=== PATIENT | female | born 1960 | race Caucasian/White ===

== ENCOUNTER 2023-09-01 22:47 | Emergency (ER) | payer OTHER, SELFPAY ==
[2023-09-01 22:53] VITALS: BP 135/94; PULSE 55; RESP 18; TEMP 36.1; O2SAT 99; BMI 24.9
[2023-09-01 23:22] VITALS: O2SAT 100
[2023-09-01 23:23] VITALS: BP 136/71; PULSE 55; O2SAT 100
[2023-09-01 23:30] VITALS: BP 131/73; PULSE 54; O2SAT 100
--- NOTE | 2023-09-01 23:50 | ED_ITS ---
HPI - Nausea/Vomiting/Diarrhea General Chief complaint: Nausea/Vomiting/Diarrhea Stated complaint: N/V/D Time Seen by Provider: 09/01/23 22:53 Source: patient and family Mode of arrival: Ambulatory History of Present Illness HPI Narrative: 63-year-old female presents for nausea and vomiting that happened after eating dinner tonight. Patient and her ate at a local [employer] restaurant and she had crab brisk. Shortly after coming home she felt abdominal cramping and had multiple episodes of nausea with vomiting. She states currently she feels dehydrated with a low-grade headache. Related Data Previous Rx's Medication Instructions Recorded ondansetron 4 mg disintegrating 4 mg PO Q8H PRN nausea and 09/02/23 tablet vomiting #20 tabs Allergies Allergy/AdvReac Type Severity Reaction Status Date / Time No Known Drug Allergies Allergy Verified 09/01/23 23:51 Review of Systems Review of Systems Narrative: Negative except as noted above Patient History Social History Smoking Status: Never smoker Smoking Status: Never smoker alcohol intake frequency: 3 or more drinks per day Alcohol type: wine Substance Use Type: does not use Exam Initial Vital Signs Initial Vital Signs: Vital Signs Temperature 97 F L 09/01/23 22:53 Pulse Rate 55 L 09/01/23 22:53 Respiratory Rate 18 09/01/23 22:53 Blood Pressure 135/94 H 09/01/23 22:53 Pulse Oximetry 99 09/01/23 22:53 Oxygen Delivery Method Room Air 09/01/23 22:53 Const: Awake, alert, no acute distress, nontoxic appearing Cardiac: regular rate, regular rhythm RESP: unlabored, clear bilaterally, no wheezing GI: Atraumatic, soft, nontender, nondistended, no rebound, no guarding MSK: Atraumatic, full range of motion, pulses equal Skin: Warm, Dry, intact, no rashes Neuro: AO x3, CN II-XII grossly intact, moves all extremities Psych: affect normal, mood normal, not suicidal, not homicidal Course Course Course Narrative: Several episodes of nausea with vomiting after eating at a restaurant. Abdomen is soft, absolutely no tenderness to light or deep palpation in the abdomen. Patient was given IV fluids, antiemetics and was subsequently able to tolerate p.o.. She stated that she felt much better and was ready to go home. Patient lives in [facility] and is not local to the area, however a short course of nausea medication was sent to pharmacy of choice and a good Rx coupon printed with patient's discharge paperwork Orders Ordered: Discontinued Medications Diphenhydramine HCl (Diphenhydramine 50 Mg/Ml Vial) 25 mg IV NOW ONE Stop: 09/01/23 23:50 Last Admin: 09/01/23 23:54 Dose: 25 mg Documented By: KYARA Sodium Chloride (Normal Saline 0.9%) 1,000 mls @ 1,000 mls/hr IV BOLUS ONE Stop: 09/02/23 00:48 Last Admin: 09/01/23 23:55 Dose: 1,000 mls/hr Documented By: KYARA Metoclopramide HCl (Metoclopramide 10 Mg/2 Ml Inj) 10 mg IV NOW ONE Stop: 09/01/23 23:50 Last Admin: 09/01/23 23:54 Dose: 10 mg Documented By: KYARA Vital Signs Vital signs: Vital Signs - 8 hr 09/01/23 22:53 09/01/23 23:22 09/01/23 23:23 Temperature 97 F L Pulse Rate 55 L Respiratory Rate 18 Blood Pressure 135/94 H 136/71 Pulse Oximetry 99 100 Oxygen Delivery Method Room Air Room Air 09/01/23 23:23 09/01/23 23:30 09/01/23 23:30 Temperature Pulse Rate 55 L 54 L Respiratory Rate Blood Pressure 131/73 Pulse Oximetry 100 100 Oxygen Delivery Method Room Air Room Air 09/02/23 00:00 09/02/23 00:00 09/02/23 00:30 Temperature Pulse Rate 56 L 58 L Respiratory Rate Blood Pressure 135/66 Pulse Oximetry 100 97 Oxygen Delivery Method Room Air Room Air 09/02/23 00:35 09/02/23 00:35 Temperature Pulse Rate 63 Respiratory Rate Blood Pressure 128/61 Pulse Oximetry 97 Oxygen Delivery Method Room Air Discharge Plan Departure Patient Disposition: Home Clinical Impression: Acute vomiting Instructions: DI for Vomiting -- Adult Prescriptions: New ondansetron 4 mg tablet,disintegrating 4 mg PO Q8H PRN (Reason: nausea and vomiting) Qty: 20 0RF Stand Alone Forms: Patient Portal/API
[2023-09-01] MEDS: diphenhydrAMINE 50 MG/ML VIAL 25 MG IV (23:54)
[2023-09-01] MEDS: METOCLOPRAMIDE 10 MG/2 ML INJ IV (23:54)
[2023-09-01] MEDS: SODIUM CHLORIDE 0.9% 1,000 ML 1000 ML IV (23:55)
[2023-09-02] VITALS: BP 135/66; PULSE 56; O2SAT 100
[2023-09-02 00:30] VITALS: PULSE 58; O2SAT 97
[2023-09-02 00:35] VITALS: BP 128/61; PULSE 63; O2SAT 97
--- NOTE | 2023-09-02 00:55 | PC.NURSE ---
Passed PO challenge well. No complaints. aware.
== END 2023-09-02 01:15 | disposition home or self-care (01) ==
PROVIDERS: Emergency Provider Emergency Medicine
DX: R11.2 Nausea with vomiting, unspecified (principal)
CPT/HCPCS: 96374; 96375; 99283; J1200; J2765